=== PATIENT | male | born 1945 | race Caucasian/White ===

== ENCOUNTER 2017-03-02 02:21 | Emergency (ER) | payer OTHER ==
[~2017-03-02] VITALS: Ht 170.2 cm; Wt 73.5 kg
[~2017-03-02 02:21] MED LIST: TAMS-11 PO; concerta
[2017-03-02 02:30] VITALS: BP_SYST 139
--- NOTE | 2017-03-02 02:30 | NUR ---
Patient to ER bed 4 to gown for evaluation. Side rails up.
--- NOTE | 2017-03-02 02:32 | NUR ---
Patient AOx4, ambulatory, presents to ER with complaint of congestion and flu-like symptoms x2 days. No other symptoms or complaints at this time.
--- NOTE | 2017-03-02 02:33 | NUR ---
LEIA Nunes at bedside for medical evaluation.
[2017-03-02 02:43] VITALS: BP_SYST 127
--- NOTE | 2017-03-02 02:43 | NUR ---
Patient given written and verbal discharge instructions and verbalizes understanding. ER MD discussed with patient the results and treatment provided. Patient in stable condition. ID arm band removed. Rx of Tamiflu given. Patient educated on pain management and to follow up with PMD. Pain Scale 0/10. Opportunity for questions provided and answered.
== END 2017-03-02 02:43 | disposition home or self-care (01) ==
LOC: SED 02:21
DX: J11.1 Influenza due to unidentified influenza virus with other respiratory manifestations (principal)
CPT/HCPCS: 99283